=== PATIENT | female | born 2000 | race Two or more races ===

== ENCOUNTER 2021-09-07 06:17 | Inpatient (IN) | payer OTHER ==
[~2021-09-07] VITALS: Ht 170.2 cm; Wt 104.3 kg
--- NOTE | 2021-09-08 15:16 | NUR ---
09/08/21 1516 Sheets,Fern 1436 PT ARRIVED TO PACU ON RA AND VSS. PT AWAKE AND TALKING. PT REPORTS BURNING PAIN AT SURGERY SITE, 8/10. NO NAUSEA REPORTS, HOB INCREASED SLIGHTLY. 1445 INCREASED BLEEDING NOTED WITH FUNDAL CHECK. FBC RN AWARE AND FUNDAL MASSAGE DONE, FIRM WITH MASSAGE. PT REPORTS 9/10 PAIN WITH FUNDAL CHECKS. 1510 BOWLING PIN REFINISHER AT BEDSIDE AND TAP BLACK DONE. FUNDAL CHECK WITH MASSAGE DONE AND FIRM WITH MASSAGE. IV FLUIDS WITH PIT INCREASED. 1515 PT REPORTS PAIN IS 2/10 AND NO NAUSEA AT THIS TIME.
--- NOTE | 2021-09-09 10:53 | PR ---
[facility] [address] [place], [place] [address] Signed PP Progress Notes Datetime Report Generated by CPN: 09/09/2021 10:53 SUBJECTIVE: [id number] Pain: Within Normal Limits Nausea/Vomiting: Denies Flatus: No Bowel Movement: No Vital Signs: [id number] Vital Signs: Reviewed; Within Normal Limits Cardiovascular: Normal Respiratory: Normal Abdomen/Uterus: Normal Lochia: Normal Breasts: Normal Extremities: Normal Incision: Normal Progress: Normal Exam Comments: NAD, sitting in chair at bedside RRR, no pallor No dyspnea/retractions Abd: SNTND, FFBU, incision c/d/i Ext: trace bilateral edema, not currently wearing SCDs IMPRESSION/PLAN/PROCEDURES: [id number] Impression: Normal Progression Plan: Continue Present Management Procedures: None Progress Notes: Pt is a 21 yo POD #1 s/p scheduled RLTCS Hgb 10.1 this am from 11 on admission Ambulating without dizziness, lightheadedness, shortness of breath Lochia light Pain well-controlled with orals Denies flatus, denies BM Anticipate DC to home tomorrow Signing Physician: Angie Salazar DO Copies: *Electronically Signed* 09/09/21 1053 ANGIE SALAZAR DO PATIENT NAME: EV BADILLO PROGRESS NOTE DATE OF : 00 PHYSICIAN: ANGIE SALAZAR DO RPT #: [id number] REPORT IS CONFIDENTIAL AND NOT TO BE RELEASED WITHOUT AUTHORIZATION [facility] [address] [place] [id number] Signed ~ *Electronically Signed* 09/09/21 1053 ANGIE SALAZAR DO PATIENT NAME: EV BADILLO PROGRESS NOTE DATE OF : 00 PHYSICIAN: ANGIE SALAZAR DO RPT #: [id number] REPORT IS CONFIDENTIAL AND NOT TO BE RELEASED WITHOUT AUTHORIZATION
--- NOTE | 2021-09-10 08:08 | PR ---
[facility] [address] [place], [place] [address] Signed PP Progress Notes Datetime Report Generated by PARAM: 09/10/2021 08:08 SUBJECTIVE: [id number] Pain: Within Normal Limits Nausea/Vomiting: Denies Flatus: Yes Bowel Movement: No Vital Signs: [id number] Vital Signs: Reviewed; Within Normal Limits Cardiovascular: Normal Respiratory: Normal Abdomen/Uterus: Normal Lochia: Normal Breasts: Normal Extremities: Normal Incision: Normal Progress: Abnormal Exam Comments: Lying supine in bed with FOB, easy to wake NAD RRR, peripheral pulses 2+ bilaterally radial and dorsalis pedis No dyspnea/ retractions Abd SNTND, binder in place Incision c/d/i, sloane in place Extremities 1+ BL pedal edema, SCDs in place, neg Karmen's BL IMPRESSION/PLAN/PROCEDURES: [id number] Impression: Normal Progression; Difficulties Plan: Continue Present Management; Remove Sloane; Discharge Procedures: None Progress Notes: 21 yo POD#2 s/p RLTCS -progressing well, requesting DC to home this am -pain well-controlled with orals, voiding spontaneously, +flatus, awaiting BM. No nausea/vomiting. Tolerating regular diet. Ambulating without assistance, denies dizziness/ lightheadedness. - difficulties, feeling engorged today without output. Started pumping overnight. -mood stable on zoloft 100mg (antepartum dose) Plan: -DC to home, staple removal prior to discharge. *Electronically Signed* 09/10/21 0808 ANGIE SALAZAR DO PATIENT NAME: EV BADILLO PROGRESS NOTE DATE OF : 00 PHYSICIAN: ANGIE SALAZAR DO RPT #: [id number] REPORT IS CONFIDENTIAL AND NOT TO BE RELEASED WITHOUT AUTHORIZATION [facility] [address] [place] [address] Signed -outpatient consult/ assistance -continue zoloft, omeprazole - visits at 2 and 6 weeks in office, sooner if needed -anticipate Paragard IUD due to "allergies" to "all types of contraception including pills and arm implant". Signing Physician: Angie Salazar DO Copies: ~ *Electronically Signed* 09/10/21ANGIE JOSHI DO PATIENT NAME: EV BADILLO PROGRESS NOTE DATE OF : 00 PHYSICIAN: ANGIE SALAZAR DO [facility] #: [id number] REPORT IS CONFIDENTIAL AND NOT TO BE RELEASED WITHOUT AUTHORIZATION
--- NOTE | 2021-09-16 01:20 | OR ---
[facility] [address] [place], [place] [address] Signed DATE OF OPERATION: 09/08/2021 SURGEON: Angie Salazar DO PROCEDURE: Repeat low-transverse . PREOPERATIVE DIAGNOSIS: History of prior 39 weeks gestation. Insufficient care High risk social situation POSTOPERATIVE DIAGNOSES: History of prior 39 weeks gestation. Insufficient care High risk social situation Term delivery Viable male . SHANK ARCHER: Dr. Parada. BLOOD LOSS: 450 mL. COMPLICATIONS: None. FINDINGS: Normal-appearing uterus, bilateral tubes and ovaries, minimal scarring of rectus fascia without bladder adhesions or intraabdominal adhesions noted. Normal-appearing appendix. Viable term male in the right occiput transverse position, weighing 7 pounds 6 ounces. Apgars 9 and 9 at 1 and 5 minutes respectively. INDICATION: The patient is a 21-year-old G2, P1 at 39 weeks gestation, here for scheduled repeat delivery. Risks, benefits, alternatives were discussed. She elected to proceed. Electronically Signed By: ANGIE SALAZAR DO 09/16/21 0120 PATIENT NAME: EV BADILLO OPERATIVE REPORT DATE OF : 00 REPORT #: [id number] PHYSICIAN: ANGIE SALAZAR DO PCP: ANGIE SALAZAR DO REPORT IS CONFIDENTIAL AND NOT TO BE RELEASED WITHOUT AUTHORIZATION [facility] [address] [place], [place] [address] Signed DESCRIPTION OF PROCEDURE: The patient was taken to the operating room where spinal anesthesia was placed by Anesthesia. She was given 2 g Ancef positioned supine with leftward tilt and prepped and draped in normal sterile fashion with placement of a Roy catheter. Incision was made with a scalpel through her prior Pfannenstiel incision. This was carried down to the underlying layer of fascia with the scalpel. Scalpel was nicked at midline and extended laterally with Carlson scissors. The inferior margin of fascia was grasped with Vidya clamps, elevated, and underlying rectus muscles dissected off bluntly and sharply with Carlson scissors, this was released. In a similar fashion, superior margin of fascia was grasped and elevated. Underlying rectus muscle was dissected off bluntly and sharply with Carlson scissors. Peritoneum was entered bluntly and extended superiorly with Carlson scissors and inferiorly taking care not to extend into the bladder. Tee retractor was placed. Hysterotomy was made with a scalpel and uterus was entered bluntly. Hysterotomy was extended laterally with gentle superior/inferior digital traction. Left arm of baby delivered initially followed by 's head in the ROT position with easy delivery of the remainder of baby's body. He gave a good strong spontaneous immediate cry. Cord was doubly clamped and cut and he was handed off to waiting nursery team. Cord blood was collected for type and Nikky and placenta was manually extracted. Uterus was cleared of clots and debris. Hysterotomy was closed in double-layer fashion, first with 0 Monocryl in a running locked manner, second with 0 Monocryl in an imbricating manner. Following second layer of closure, excellent hemostasis was noted. Pelvis was irrigated with warm sterile saline. Uterus, tubes, and ovaries were inspected with findings as noted above. Appendix was incidentally visualized during inspection of uterus, tubes, and ovaries, and noted to be normal and non-inflamed. Tee retractor was removed. Peritoneum was closed with 2-0 Vicryl in a running fashion. Rectus muscle was reapproximated with 0 Vicryl in simple interrupted fashion. Perforating vessels were cauterized with Bovie cautery. The fascia was closed with 0 Vicryl in a running fashion, working left to right with a continuous running unlocked suture. Subcutaneous layer was irrigated with warm sterile saline and perforating vessels were cauterized with Bovie cautery. Subcutaneous layer was reapproximated with 3-0 Vicryl and skin was closed with skin clips. Uterus was crede'd with minimal blood clots expressed. Sponge and instrument counts were correct x2. The patient remained in the OR for placement of a TAP block per anesthesia due to morphine allergy. Electronically Signed By: ANGIE SALAZAR DO 09/16/21 0120 PATIENT NAME: EV BADILLO OPERATIVE REPORT DATE OF : 00 REPORT #: [id number] PHYSICIAN: ANGIE SALAZAR DO PCP: ANGIE SALAZAR DO REPORT IS CONFIDENTIAL AND NOT TO BE RELEASED WITHOUT AUTHORIZATION [address] [address] Signed Angie Salazar DO EMZ/MODL /[id number] Copies: ~ Electronically Signed By: ANGIE SALAZAR DO 09/16/21 0120 PATIENT NAME: EV BADILLO OPERATIVE REPORT DATE OF : 00 REPORT #: [id number] PHYSICIAN: ANGIE SALAZAR DO PCP: ANGIE SALAZAR DO REPORT IS CONFIDENTIAL AND NOT TO BE RELEASED WITHOUT AUTHORIZATION
== END 2021-09-10 12:50 | disposition home or self-care (01) | DRG 788 ==
LOC: FBC 09-08 10:02
PROVIDERS: ADMIT Obstetrics & Gynecology; ATTEND Obstetrics & Gynecology
PROC: 3E0R3BZ Introduction of Anesthetic Agent into Spinal Canal, Percutaneous Approach (ICD-10-PCS; 2021-09-08)
PROC: 3E0R33Z Introduction of Anti-inflammatory into Spinal Canal, Percutaneous Approach (ICD-10-PCS; 2021-09-08)
PROC: 10D00Z1 Extraction of Products of Conception, Low, Open Approach (ICD-10-PCS; principal; 2021-09-08 12:00)
DX: O34.211 Maternal care for low transverse scar from previous cesarean delivery (principal); O99.62 Diseases of the digestive system complicating childbirth; K21.9 Gastro-esophageal reflux disease without esophagitis; Z3A.39 39 weeks gestation of pregnancy; Z37.0 Single live birth; O99.344 Other mental disorders complicating childbirth; F32.A Depression, unspecified; O99.334 Smoking (tobacco) complicating childbirth; F17.200 Nicotine dependence, unspecified, uncomplicated; Z67.40 Type O blood, Rh positive
CPT/HCPCS: 64488; 76942; 83030; 85027; 86850; 86900; 86901; A9270; J0131; J0690; J1100; J1170; J1650; J1885; J2001; J2405; J2590; J2790; J3010; J7121

== ENCOUNTER 2022-08-16 10:47 | Emergency (ER) | payer OTHER ==
[~2022-08-16] VITALS: Ht 182.9 cm; Wt 93.4 kg
[2022-08-16] MEDS ORDERED: OMEPRAZOLE20 MG PO (11:02)
[2022-08-16] MEDS ORDERED: FOLIC ACID1 MG PO (11:02)
== END 2022-08-16 13:50 | disposition left against medical advice (07) ==
LOC: ED 10:47
DX: O20.0 Threatened abortion (principal); O26.892 Other specified pregnancy related conditions, second trimester; Z3A.19 19 weeks gestation of pregnancy; O99.332 Smoking (tobacco) complicating pregnancy, second trimester; F17.200 Nicotine dependence, unspecified, uncomplicated; Z91.040 Latex allergy status; Z88.5 Allergy status to narcotic agent; Z79.899 Other long term (current) drug therapy
CPT/HCPCS: 36415; 76815; 80053; 81001; 85025; 85384; 87491; 99284-25; A9270

== ENCOUNTER 2022-12-26 09:16 | Inpatient (IN) | payer OTHER ==
[~2022-12-26] VITALS: Ht 170.2 cm; Wt 105.2 kg
[~2022-12-26 09:16] MED LIST: FOLIC ACID1 MG PO; OMEPRAZOLE20 MG PO
--- NOTE | 2023-01-01 09:23 | NUR ---
01/01/23 0923 Mallorie,Fern 0903 PT IN ROOM WITH AT BEDSIDE. PT VERY DROWSY AND DENIES CONCERNS. PT UNABLE TO MOVE LEGS OR FEET AND EDUCATION GIVEN. 09 BABY TO CHEST WITH FBC RN. PT DENIES NAUSEA AND PAIN. 09 PT FALLING ASLEEP AND BABY REMOVED FROM CHEST. FUNDAL CHECK WITH FBC RN, FIRM WITH MESSAGE AND SMALL CLOTS NOTED. FBC RN AWARE. PT DENIES PAIN WITH FUNDAL CHECKS.
--- NOTE | 2023-01-01 18:15 | PR ---
[facility] [address] [place], [place] [address] Signed PP Progress Notes Datetime Report Generated by CPN: 01/01/2023 18:14 SUBJECTIVE: [id number] Pain: Within Normal Limits Nausea/Vomiting: Denies Vital Signs: [id number] Vital Signs: Reviewed; Within Normal Limits Cardiovascular: Normal Respiratory: Normal Abdomen/Uterus: Normal Lochia: Normal Extremities: Abnormal Exam Comments: Bilateral lower extremities: minimal bruising bilateral posterior lower legs, tender to palpation of bilateral calves worse with dorsiflexion. Excellent peripheral perfusion, fine touch sensation intact, normal motor strength. Pt resting with knees flexed "most comfortable position" IMPRESSION/PLAN/PROCEDURES: [id number] Other Plans: Venous duplex US bilateral lower extremities: Negative for DVT Progress Notes: Pt seen and evaluated at bedside. Bilateral "jeanette horse" pain in calves, reviewed negative US findings. Pain is moving proximally up legs. SCDs replaced, ok to administer lovenox. Spinal anesthesia is still wearing off, pt denies feeling "pins and needles". Pt diuresing now where previously UOP had been low. Encouraged continued oral hydration and updates on how her legs are feeling. Pt signed out to Dr. Dior, locum provider, for continued care. Signing Physician: Angie Salazar DO Copies: ~ *Electronically Signed* 01/01/23 1813 ANGIE SALAZAR DO PATIENT NAME: EV BADILLO PROGRESS NOTE DATE OF : 00 PHYSICIAN: ANGIE SALAZAR #: [id number] REPORT IS CONFIDENTIAL AND NOT TO BE RELEASED WITHOUT AUTHORIZATION
--- NOTE | 2023-01-01 18:47 | OR ---
[facility] [address] [place], [place] [address] Signed DATE OF OPERATION: 01/01/2023 SURGEON: Angie Salazar DO PROCEDURE: Repeat low-transverse section. PREOPERATIVE DIAGNOSIS: History of prior , anxiety, depression, , GBS positive, 39 weeks gestation. POSTOPERATIVE DIAGNOSIS: Term , delivered. History of prior , anxiety, depression, , GBS positive. ANESTHESIA: Spinal. BLOOD LOSS: 500 mL. COMPLICATIONS: None. FINDINGS: Viable term female in the right occiput posterior position weighing 6 pounds 5 ounces. Apgars 8 and 9 at 1 and 5 minutes respectively. Single filmy adhesion from left pelvic sidewall overlying the uterus attaching to anterior fundus at midline. Otherwise, minimal scarring from prior two C sections noted. Normal-appearing bilateral tubes and ovaries. INDICATIONS: The patient is a 22-year-old G3, P2-0-0-2 at 39 and 4/7 weeks gestation, presenting for scheduled repeat section. Risks, benefits, alternatives were discussed. She elected to proceed. PROCEDURE IN DETAIL: She was given 2 g Ancef IV and was taken back to the operating room. Spinal was placed by anesthesia and she was placed in supine Electronically Signed By: ANGIE SALAZAR DO 01/01/23 1847 PATIENT NAME: EV BADILLO OPERATIVE REPORT DATE OF : 00 REPORT #: [id number] PHYSICIAN: ANGIE SALAZAR DO PCP: ANGIE SALAZAR DO REPORT IS CONFIDENTIAL AND NOT TO BE RELEASED WITHOUT AUTHORIZATION [facility] [address] [place], [place] [address] Signed position with a leftward tilt.Roy catheter was placed and she was prepped and draped in normal sterile fashion. Adequate anesthesia was confirmed. An incision was made with a scalpel through a prior low transverse abdominal scar. This was carried down with a scalpel to the underlying layer of fascia which was nicked at midline and extended laterally with Carlson scissors. Inferior margin of fascia was grasped and elevated. Underlying rectus muscles dissected off with blunt and sharp dissection with Carlson scissors, very easily given prior history of two deliveries. In a similar fashion, superior margin of fascia was grasped and elevated with Vidya clamps. Underlying rectus muscle was dissected off bluntly and sharply with Carlson scissors, also with minimal scarring noted. Peritoneum was grasped with hemostats, elevated and entered sharply with Metzenbaum scissors. Incision was extended first superiorly with Carlson scissors, then inferiorly with Carlson scissors with good visualization of the bladder flap. Peritoneal incision was further extended with lateral traction. Filmy adhesion was noted and taken down with Bovie cautery with resulting hemostasis. Tee retractor was then placed without difficulty or complication. Hysterotomy was made with a scalpel the uterus, and pickups were used to perform amniotomy yielding large amount of clear fluid. Infant's head was easily grasped and elevated to the level of the hysterotomy without any difficulty and delivered. Loose nuchal x 1 was reduced and shoulders and body were easily delivered. The baby gave a strong spontaneous cry immediately upon delivery. Cord was doubly clamped and cut and baby was handed off to waiting nursery team. Cord blood was collected for type and Nikky. Segment of cord was collected and set aside in case further testing was required by nursery team and placenta was manually expressed and noted to be intact. Uterus was cleared of clots and debris. Stay suture was placed at the right apex and hysterotomy was closed in a double-layer closure, first layer with 0 Vicryl in a running locked manner, second with 0 Monocryl in an imbricating manner. Pelvis was suction irrigated with warm sterile saline with excellent hemostasis noted. Tee retractor was removed. Peritoneum was closed with 2-0 Vicryl in a running fashion without difficulty or complication. Rectus muscle was then reapproximated at midline with 0 Vicryl in a simple interrupted fashion. This layer was suction irrigated with warm sterile saline with excellent hemostasis noted. Fascia was closed with 0 Vicryl in a running fashion working 1st from right apex to midline, then from left apex to midline meeting in the middle. Subcutaneous layer was suction irrigated with warm sterile saline. Several small perforating vessels were noted and were cauterized with Bovie Electronically Signed By: ANGIE SALAZAR DO 01/01/23 1847 PATIENT NAME: EV BADILLO OPERATIVE REPORT DATE OF : 00 REPORT #: [id number] PHYSICIAN: ANGIE SALAZAR DO PCP: ANGIE SALAZAR DO REPORT IS CONFIDENTIAL AND NOT TO BE RELEASED WITHOUT AUTHORIZATION [address] [address] Signed cautery and then subcutaneous layer was reapproximated in a running fashion with 3-0 Vicryl. Skin was closed with skin clips. Sponge, instrument, and lap counts were all correct x2. Uterus was Crede'd and noted to be free of clots. The patient remained in the operating room for placement of TAP blocks for pain management by Anesthesia. DO RENE Mi/TRAVISL /[id number] Copies: ~ Electronically Signed By: ANGIE SALAZAR DO 01/01/23 1847 PATIENT NAME: EV BADILLO OPERATIVE REPORT DATE OF : 00 REPORT #: [id number] PHYSICIAN: ANGIE SALAZAR DO PCP: ANGIE SALAZAR DO REPORT IS CONFIDENTIAL AND NOT TO BE RELEASED WITHOUT AUTHORIZATION
--- NOTE | 2023-01-02 09:10 | PR ---
[facility] [address] [place], [place] [address] Signed PP Progress Notes Datetime Report Generated by PARAM: 01/02/2023 09:09 SUBJECTIVE: [id number] Pain: Within Normal Limits Nausea/Vomiting: Denies Flatus: No Bowel Movement: No Vital Signs: [id number] Vital Signs: Reviewed; Within Normal Limits Cardiovascular: Normal Respiratory: Normal Abdomen/Uterus: Normal Lochia: Normal Extremities: Normal Incision: Normal Progress: Normal Exam Comments: Fundus firm and below umbilicus. Appropriate TTP. Bandage in place. No bleeding noted through bandage. No C/C/E noted on extremities. Non tender to palpation. No bruising noted. IMPRESSION/PLAN/PROCEDURES: [id number] Impression: Normal Progression; Pain Plan: Continue Present Management Other Plans: Venous duplex US bilateral lower extremities: Negative for DVT Procedures: None Progress Notes: 22 yo s/p RLTCS, POD #1. Some blood loss anemia noted from surgery on this morning's labs. She Denies WILLSON, CP, SOB, F/C, N/V, RUQ pain, vaginal discharge. Reports shoulder pain, poor pain control. Reports she is well. Tolerating regular diet, voiding, ambulating, no bowel movement or flatus. A/P: Patient well. Asymptomatic from anemia. I_O reviewed. Making good urine output. Will continue to monitor. Bruising and leg pain she reported from yesterday appears to be resolved. Regarding pain control, will attempt to stagger out her pain medications so that she is receving alternating Ibuprofen and Percocet/Oxycodone as needed for pain. Regarding shoulder pain, discussed with patient this is secondary from air being trapped under the diaphragm. Recommended getting up and walking would help with this issue. Disposition in house. Likely discharge home tomorrow morning. Signing Physician: Michelle Smith MD *Electronically Signed* 01/02/23908 MICHELLE SMITH MD PATIENT NAME: EV BADILLON PROGRESS NOTE DATE OF : 00 PHYSICIAN: MICHELLE SMITH MD RPT #: [id number] REPORT IS CONFIDENTIAL AND NOT TO BE RELEASED WITHOUT AUTHORIZATION [address] [address] Signed Copies: ~ *Electronically Signed* 01/02/23908 MICHELLE SMITH MD PATIENT NAME: EV BADILLON PROGRESS NOTE DATE OF : 00 PHYSICIAN: MICHELLE SMITH MD RPT #: [id number] REPORT IS CONFIDENTIAL AND NOT TO BE RELEASED WITHOUT AUTHORIZATION
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
== END 2023-01-03 14:30 | disposition home or self-care (01) | DRG 788 ==
LOC: FBC 01-01 04:51
PROVIDERS: ADMIT Obstetrics & Gynecology; ATTEND Obstetrics & Gynecology
PROC: 10D00Z1 Extraction of Products of Conception, Low, Open Approach (ICD-10-PCS; principal; 2023-01-01 07:30)
DX: O34.211 Maternal care for low transverse scar from previous cesarean delivery (principal); O99.344 Other mental disorders complicating childbirth; F41.9 Anxiety disorder, unspecified; F32.A Depression, unspecified; O99.824 Streptococcus B carrier state complicating childbirth; Z3A.39 39 weeks gestation of pregnancy; Z37.0 Single live birth; Z67.40 Type O blood, Rh positive; O99.03 Anemia complicating the puerperium; D64.9 Anemia, unspecified
CPT/HCPCS: 01961; 36415; 76942; 85027; 86850; 86900; 86901; 93970; A9270; J0131; J0690; J1100; J1650; J1790; J1885; J2001; J2370; J2405; J2590; J2795; J7121

== ENCOUNTER 2023-08-14 16:41 | Emergency (ER) | payer OTHER ==
[~2023-08-14] VITALS: Ht 170.2 cm; Wt 99.8 kg
[2023-08-14] MEDS ORDERED: VENTOLIN HFA18 GM INH (18:36)
[2023-08-14 19:30] LABS: BASOPHILS 0.7 % (0-2); EOSINOPHILS 0.7 % (0-6); HEMATOCRIT 43.9 % (35.0-50.0); HEMOGLOBIN 14.8 g/dL (12.0-18.0); LYMPHOCYTES 36.5 % (24-44); MCHC 33.6 g/dl (30-36); MCV 83.4 fl (81-99); MONOCYTES 7.2 % (0-12); NEUTROPHILS 54.9 % (39-80); PLATELET COUNT 310 K/uL (140-440); RBC 5.27 M/ul (4.3-5.7); RDW 15.2 (10.5-15.0)
[2023-08-14 19:50] LABS: ALBUMIN 4.2 g/dL (3.4-5.0); ALBUMIN/GLOBULIN RATIO 1.35 (1.1-2.4); ANION GAP 14.7 (7-21); BILIRUBIN, TOTAL 0.2 ng/dL (0.2-1.0); BUN/CREATININE RATIO 22.85 (6.0-28.6); CALCIUM 9.2 mg/dL (8.5-10.1); CREATININE, SERUM 0.7 mg/dL (0.55-1.02); MAGNESIUM 2.1 mg/dL (1.8-2.4); POTASSIUM 3.7 mmol/L (3.5-5.1); PROTEIN, TOTAL 7.3 g/dL (6.4-8.2); TSH, 3RD GENERATION 1.442 uIU/mL (0.358-3.740)
[2023-08-14] MEDS ORDERED: PROPRANOLOL HCL10 MG PO (20:06)
[2023-08-14 20:22] VITALS: BP 108/72
--- NOTE | 2023-08-14 20:45 | EKG ---
[facility] [place] [facility] [address] [facility] [place] [address] Signed Sinus tachycardia with short IA Otherwise normal ECG No previous ECGs available Confirmed by Corina Olvera MD () on 08/14/2023 8:45:11 PM Electronically Signed By: CORINA OLVERA MD 08/14/232044 PATIENT NAME: EV BADILLO Electrocardiogram DATE OF : 00 PHYSICIAN: CORINA OLVERA MD REPORT #: [id number] REPORT IS CONFIDENTIAL AND NOT TO BE RELEASED WITHOUT AUTHORIZATION
== END 2023-08-14 20:15 | disposition home or self-care (01) ==
LOC: ED 16:41
PROVIDERS: Family Medicine
DX: I47.10 Supraventricular tachycardia, unspecified (principal); F17.200 Nicotine dependence, unspecified, uncomplicated; Z79.899 Other long term (current) drug therapy; Z91.040 Latex allergy status; Z88.5 Allergy status to narcotic agent
CPT/HCPCS: 36415; 80053; 83735; 84443; 85025; 93005; 93010; 99285-25; 99406

== ENCOUNTER 2024-02-22 22:42 | Emergency (ER) | payer OTHER ==
[~2024-02-22] VITALS: Ht 170.2 cm; Wt 92.3 kg
[~2024-02-22 22:42] MED LIST changes: +PROPRANOLOL HCL10 MG PO; +VENTOLIN HFA18 GM INH
[2024-02-22] MEDS ORDERED: KETOROLAC TROMETHAMINE 30 MG/ML VIAL IV ONE (23:15)
[2024-02-22] MEDS ORDERED: LACTATED RINGER'S 1,000 ML IV ONE (23:15)
[2024-02-22] MEDS ORDERED: ondansetron HCL 4 MG/2 ML VIAL IV ONE (23:15)
[2024-02-22 23:41] LABS: BASOPHILS 0.1 % (0-2); EOSINOPHILS 0.1 % (0-6); HEMOGLOBIN 16.5 g/dL (12.0-18.0); LYMPHOCYTES 4.9 % (24-44); MCHC 33.1 g/dl (30-36); MCV 87.7 fl (81-99); MONOCYTES 4.5 % (0-12); NEUTROPHILS 90.4 % (39-80); PLATELET COUNT 302 K/uL (140-440); RDW 14.3 (10.5-15.0)
[2024-02-22 23:54] LABS: ALBUMIN 4.2 g/dL (3.4-5.0); ALBUMIN/GLOBULIN RATIO 1.08 (1.1-2.4); ANION GAP 20.7 (7-21); BILIRUBIN, TOTAL 0.6 ng/dL (0.2-1.0); BUN/CREATININE RATIO 18.75 (6.0-28.6); CALCIUM 8.6 mg/dL (8.5-10.1); CREATININE, SERUM 1.12 mg/dL (0.55-1.02); POTASSIUM 3.7 mmol/L (3.5-5.1); PROTEIN, TOTAL 8.1 g/dL (6.4-8.2)
[2024-02-23 00:06] LABS: INFLUENZA B NAA NEGATIVE (NEGATIVE); RESPIRATORY SYNCYTIAL VIR NAA NEGATIVE (NEGATIVE)
[2024-02-23] MEDS ORDERED: ONDANSETRON ODT8 MG PO (00:36)
[2024-02-23] MEDS ORDERED: LOMOTIL TABLET1 EACH PO (00:36)
[2024-02-23] MEDS ORDERED: ONDANSETRON 4 MG HOME.PACK SL ONE (00:45)
[2024-02-23 01:00] VITALS: BP 115/74
== END 2024-02-23 01:00 | disposition home or self-care (01) ==
LOC: ED 22:42
PROVIDERS: Family Medicine
DX: K52.9 Noninfective gastroenteritis and colitis, unspecified (principal); F32.A Depression, unspecified; F41.9 Anxiety disorder, unspecified; F17.200 Nicotine dependence, unspecified, uncomplicated; Z11.52 Encounter for screening for COVID-19; Z91.040 Latex allergy status; Z88.5 Allergy status to narcotic agent; Z79.899 Other long term (current) drug therapy
CPT/HCPCS: 36415; 80053; 85025; 87502; 96361; 96374; 96375; 99284-25; A9270; J1885; J2405; J7121; U0002